=== PATIENT | female | born 1965 | race Caucasian/White ===

== ENCOUNTER 2016-05-24 09:00 | Emergency (ER) | payer BC ==
[2016-05-24 09:06] VITALS: BP 172/91; PULSE 88; TEMP 97.8; BMI 42.5
--- NOTE | 2016-05-24 09:29 | PDOC ---
History of Present Illness - General History Source: Patient Exam Limitations: No Limitations - History of Present Illness Initial Comments: CHIEF COMPLAINT: 51 y/o afebrile female with no significant PMH c/o burn to right breast. HISTORY OF PRESENT ILLNESS: The patient states she was cooking naked 1 week ago and after finishing she was cleaning her stove and she accidentally leaned in to the hot pot on the stove, burning her right breast. She has been cleaning it with hydrogen peroxide and putting neosporin on it but it's not getting any better. She now has redness surrounding the burn and is worried it' s infected. She denies decreased sensation to area of the burn, f/c, body aches , n/v/d. Vital signs on arrival are within normal limits. REVIEW OF SYSTEMS: GENERAL/CONSTITUTIONAL: No fever/chills. No weakness. No weight change. HEAD, EYES, EARS, NOSE AND THROAT: No change in vision. No ear pain or discharge. No sore throat. CARDIOVASCULAR: No chest pain or shortness of breath. RESPIRATORY: No cough, wheezing, or hemoptysis. GASTROINTESTINAL: No abd pain, nausea, vomiting, diarrhea. GENITOURINARY: No dysuria, frequency, or change in urination. MUSCULOSKELETAL: No joint or muscle swelling or pain. No neck or back pain. SKIN: +burn to right breast. NEUROLOGIC: No headache, vertigo, loss of consciousness, or loss of sensation. PHYSICAL EXAM: GENERAL: The patient is awake, alert, and fully oriented, in no acute distress. She is morbidly obese, ambulatory, in NAD or obvious discomfort. HEAD: Normal with no signs of trauma. ENT: Pupils equal, round and reactive to light, extraocular movements intact, sclera anicteric, conjunctiva clear. Neck supple. EXTREMITIES: Normal range of motion, no edema. NEUROLOGICAL: Normal speech, normal gait. CN II-XII grossly intact. PSYCH: Normal mood, normal affect. SKIN: 5cm x 5cm 2nd degree burn to upper inner quadrant of right breast with 12cm x 14cm area of surrounding erythema. <Jana Marsh - Last Filed: 05/24/16 09:56> <Ana M Velarde - Last Filed: 05/24/16 10:38> - General Chief Complaint: Wound Stated Complaint: BURN TO CHEST Time Seen by Provider: 05/24/16 09:13 Past History - Past Medical History Anemia: No Asthma: No Cancer: No Cardiac Disorders: No CVA: No COPD: No CHF: No Dementia: No Diabetes: No GI Disorders: No Disorders: No HTN: No Hypercholesterolemia: No Liver Disease: No Seizures: No Thyroid Disease: No - Surgical History Neurologic Surgery: No Orthopedic Surgery: Yes (KNEE SURGERY-LEFT ARTHROSCOPY) - Psycho/Social/Smoking Cessation Hx Anxiety: No Suicidal Ideation: No Smoking Status: Yes Smoking History: Current every day smoker Have you smoked in the past 12 months: Yes Number of Cigarettes Smoked Daily: 20 Information on smoking cessation initiated: No 'Breaking Loose' booklet given: 10/29/15 Hx Alcohol Use: No Drug/Substance Use Hx: No Substance Use Type: Alcohol Hx Substance Use Treatment: No <Jana Marsh - Last Filed: 05/24/16 09:56> <Ana M Velarde - Last Filed: 05/24/16 10:38> - Past Medical History Allergies/Adverse Reactions: Allergies Allergy/AdvReac Type Severity Reaction Status Date / Time amoxicillin [Amoxicillin] Allergy Severe Rash Verified 05/24/16 09:06 Home Medications: Ambulatory Orders NK [No Known Home Medication] 05/24/16 *Physical Exam - Vital Signs Last Vital Signs Temp Pulse Resp BP Pulse Ox 97.8 F 88 18 172/91 100 05/24/16 09:02 05/24/16 09:02 05/24/16 09:02 05/24/16 09:02 05/24/16 09:02 <Jana Marsh - Last Filed: 05/24/16 09:56> - Vital Signs Last Vital Signs Temp Pulse Resp BP Pulse Ox 97.8 F 88 18 172/91 100 05/24/16 09:02 05/24/16 09:02 05/24/16 09:02 05/24/16 09:02 05/24/16 09:02 <Ana M Velarde - Last Filed: 05/24/16 10:38> Medical Decision Making - Medical Decision Making A/P: 51 y/o afebrile female with 2nd degree burn to right breast. Plan is as follows: 1. IV Dalvance 2. Cover burn with xeroform and non adherent dressing The patient tolerated Dalvance well. Informed her no further abx treatment is necessary at this time. Covered burn with xeroform and then non-adherent dressing Provided her with some xeroform and non adherent dressing to take home Instructed her to d/c peroxide cleaning of the burn. INstructed her to f/u at the [facility] burn center within 1 week INstructed her to return to the ER with any worsening or concerning symptoms. The patient verbalizes understanding of all instructions, has no further questions and is awaiting discharge. <Jana Marsh - Last Filed: 05/24/16 09:56> *DC/Admit/Observation/Transfer <Jana Marsh - Last Filed: 05/24/16 09:56> - Attestations Physician Attestion: 05/24/16 09:36 I independently examined and evaluated this patient in conjunction with STACI Marsh, mid-level practitioner. I reviewed the case and agree with the mid- level practitioner's assessment, diagnosis and disposition. Wound examined. Recommended 1 dose of dalvance, as the surrounding erythema is spreading. No streaking. Will apply bacitracin and xeroform and f/u with wound care. <Ana M Velarde - Last Filed: 05/24/16 10:38> Diagnosis at time of Disposition: Second degree burn of chest wall - Discharge Dispostion Condition at time of disposition: Good - Referrals Referrals: Gregg Gonsalez MD [Primary Care Provider] - - Patient Instructions Printed Discharge Instructions: DI for [place] Additional Instructions: Discharge Instructions: -You were treated with 1 dose of IV Dalvance for cellulitis; no more antibiotics treatment is necessary -Please stop cleaning burn with peroxide -Please stop picking the skin of the burn -Apply Neosporin to your burn and cover with non-adherent dressing -Please follow up at the [facility] Burn Unit at [address] [place] [address] within 1 week. [phone] -Return to the ER with any worsening or concerning symptoms
[2016-05-24] MEDS ORDERED: DALBAVANCIN HCL 1,500 MG in DEXTROSE 5%-WATER - 500 ML IVPB ONE (09:36)
[2016-05-24] MEDS ORDERED: DALBAVANCIN HCL 500 MG VIAL (RESTRICTED TO ID ONLY) IVPB ONE (10:21)
== END 2016-05-24 11:21 | disposition home or self-care (01) ==
LOC: JER 09:00
PROC: 2W24X4Z Dressing of Chest Wall using Bandage (ICD-10-PCS; principal; 2016-05-24)
DX: T21.21XA Burn of second degree of chest wall, initial encounter (principal); T31.0 Burns involving less than 10% of body surface; X15.3XXA Contact with hot saucepan or skillet, initial encounter; Y93.G3 Activity, cooking and baking; Y92.030 Kitchen in apartment as the place of occurrence of the external cause
CPT/HCPCS: 99283-25; J0875

== ENCOUNTER 2017-01-24 09:53 | Emergency (ER) | payer BC ==
[2017-01-24 10:00] VITALS: BP 145/95; PULSE 80; TEMP 98; BMI 52.1
[2017-01-24] MEDS ORDERED: IBUPROFEN 600 MG TABLET (FP) PO ONE ×2 (10:18→10:28)
--- NOTE | 2017-01-24 10:27 | PDOC ---
History of Present Illness - General Chief Complaint: Pain Stated Complaint: SHOULDER PAIN Time Seen by Provider: 01/24/17 10:18 History Source: Patient Exam Limitations: No Limitations - History of Present Illness Initial Comments: 01/24/17 10:19 Patient states one month ago slipped and fell in bathroom while on vacation and landed on her left shoulder. States was painful and bruised at the time and was hoping pain would resolve but has not. Patient states has continued pain and mild immobility secondary to this since that injury. Denies numbness or tingling to hand, no elbow pain, no neck pain. Has used and ibuprofen occasionally with minimal resolved. 01/24/17 10:21 Occurred: reports: other Severity: reports: mild Pain Location: reports: upper extremity (left shoulder) Past History - Past Medical History Allergies/Adverse Reactions: Allergies Allergy/AdvReac Type Severity Reaction Status Date / Time amoxicillin [Amoxicillin] Allergy Severe Rash Verified 01/24/17 10:00 Home Medications: Ambulatory Orders Naproxen [Naprosyn -] 500 mg PO BID #30 tablet 01/24/17 Anemia: No Asthma: No Cancer: No Cardiac Disorders: No CVA: No COPD: No CHF: No Dementia: No Diabetes: No GI Disorders: No Disorders: No HTN: No Hypercholesterolemia: No Liver Disease: No Seizures: No Thyroid Disease: No - Surgical History Neurologic Surgery: No Orthopedic Surgery: Yes (KNEE SURGERY-LEFT ARTHROSCOPY) - Psycho/Social/Smoking Cessation Hx Anxiety: No Suicidal Ideation: No Smoking Status: Yes Smoking History: Current every day smoker Have you smoked in the past 12 months: Yes Number of Cigarettes Smoked Daily: 20 Information on smoking cessation initiated: No 'Breaking Loose' booklet given: 10/29/15 Hx Alcohol Use: No Drug/Substance Use Hx: No Substance Use Type: Alcohol Hx Substance Use Treatment: No Review of Systems - Review of Systems Able to Perform ROS?: Yes Is the patient limited Georgian proficient: Yes Constitutional: Yes: See HPI. No: Symptoms Reported HEENTM: Yes: See HPI. No: Symptoms Reported Respiratory: No: Symptoms reported Musculoskeletal: Yes: Symptoms Reported, See HPI, Joint Pain, Joint Swelling ( left shoulder) All Other Systems: Reviewed and Negative *Physical Exam - Vital Signs Last Vital Signs Temp Pulse Resp BP Pulse Ox 98 F 80 18 145/95 100 01/24/17 09:58 01/24/17 09:58 01/24/17 09:58 01/24/17 09:58 01/24/17 09:58 - Physical Exam General Appearance: Yes: Nourished, Appropriately Dressed, Apparent Distress, Mild Distress HEENT: positive: DARRICK, Normal ENT Inspection, TMs Normal, Pharynx Normal Neck: positive: Supple. negative: Tender Respiratory/Chest: positive: Lungs Clear Musculoskeletal: positive: Normal Inspection. negative: CVA Tenderness, Vertebral Tenderness Extremity: positive: Normal Capillary Refill, Normal Inspection. negative: Normal Range of Motion (limited range of motion secondary to tenderness at shoulder capsule, has mild tenderness at before meals joint, and soft tissue both posterior and anterior. Abduction to 90 and unable with resistance. 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 We'll treat with NSAIDs and have follow up with Orth O for further testing and treatment *DC/Admit/Observation/Transfer Diagnosis at time of Disposition: Sprain of shoulder, left Qualifiers: Encounter type: initial encounter Shoulder sprain type: unspecified sprain Qualified Code(s): S43.402A - Unspecified sprain of left shoulder joint, initial encounter - Discharge Dispostion Disposition: HOME Condition at time of disposition: Stable Admit: No - Referrals Referrals: Gregg Gonsalez MD [Primary Care Provider] - Nish Rodarte MD [Staff Physician] - - Patient Instructions Printed Discharge Instructions: DI for Shoulder Sprain Additional Instructions: Rest, ice to area on and off for 15 minutes 4-6 times a day Avoid heavy lifting or exercise until pain and swelling is resolved or until further directed Keep area highly elevated to reduce swelling Use splints/Arias wrap as directed Followup with orthopedist in one to 2 days if not improving, if significantly improved may wait one week for followup with orthopedist May use ibuprofen 2-200 mg tablets every 6 hours as needed for pain - Post Discharge Activity Work/School Note: Back to Work
== END 2017-01-24 10:39 | disposition home or self-care (01) ==
LOC: JERFT 09:53
DX: S43.402A Unspecified sprain of left shoulder joint, initial encounter (principal); W18.39XA Other fall on same level, initial encounter; Y93.89 Activity, other specified; Y92.89 Other specified places as the place of occurrence of the external cause
CPT/HCPCS: 73030-TC-LT; 99281-25

== ENCOUNTER 2017-07-26 18:36 | Emergency (ER) | payer BC ==
--- NOTE | 2017-07-26 18:41 | PDOC ---
Rapid Medical Evaluation Chief Complaint: Respiratory Time Seen by Provider: 07/26/17 18:38 Medical Evaluation: Allergies Allergy/AdvReac Type Severity Reaction Status Date / Time amoxicillin [Amoxicillin] Allergy Severe Rash Verified 07/26/17 18:38 07/26/17 18:39 Otherwise healthy 52 year old female with one week of cough, non-productive. Smokes 1/2 pack daily. V/s unremarkable. Scant expiratory wheezing. To FT for further evaluation. 07/26/17 18:40
[2017-07-26 18:43] VITALS: BP 156/76; PULSE 92; TEMP 98.4; BMI 54.8
[2017-07-26] MEDS ORDERED: ALBUTEROL SO4 2.5/IPRATROPIUM 0.5 INH SOL 3 ML VIAL.NEB. NEB ONE ×2 (18:50→18:59)
--- NOTE | 2017-07-26 19:05 | PDOC ---
History of Present Illness - General Chief Complaint: Respiratory Stated Complaint: COUGHING Time Seen by Provider: 07/26/17 18:38 History Source: Patient Exam Limitations: No Limitations - History of Present Illness Initial Comments: 07/26/17 18:50 cough for one week no fever mild wheezing. Pt has DM, obesity , smoker. no SOB or chest pain no leg swelling 07/26/17 19:16 Past History - Past Medical History Allergies/Adverse Reactions: Allergies Allergy/AdvReac Type Severity Reaction Status Date / Time amoxicillin [Amoxicillin] Allergy Severe Rash Verified 07/26/17 18:38 Home Medications: Ambulatory Orders Albuterol Sulfate Inhaler - [Ventolin HFA Inhaler -] 1 - 2 inh PO Q4H #1 inhaler 07/26/17 Azithromycin [Zithromax 250mg Tablets -] 250 mg PO UTDICT #6 tab 07/26/17 Benzonatate [Tessalon Pearls -] 200 mg PO TID PRN #42 cap 07/26/17 Anemia: No Asthma: No Cancer: No Cardiac Disorders: No CVA: No COPD: No CHF: No Dementia: No Diabetes: No GI Disorders: No Disorders: No HTN: No Hypercholesterolemia: No Liver Disease: No Seizures: No Thyroid Disease: No - Surgical History Neurologic Surgery: No Orthopedic Surgery: Yes (KNEE SURGERY-LEFT ARTHROSCOPY) - Immunization History Immunization Up to Date: Yes - Suicide/Smoking/Psychosocial Hx Smoking Status: Yes Smoking History: Current every day smoker Have you smoked in the past 12 months: Yes Number of Cigarettes Smoked Daily: 20 Information on smoking cessation initiated: No 'Breaking Loose' booklet given: 10/29/15 Hx Alcohol Use: No Drug/Substance Use Hx: No Substance Use Type: None Hx Substance Use Treatment: No *Physical Exam - Vital Signs Last Vital Signs Temp Pulse Resp BP Pulse Ox 98.4 F 92 H 22 156/76 97 07/26/17 18:38 07/26/17 18:38 07/26/17 18:38 07/26/17 18:38 07/26/17 18:38 - Physical Exam General Appearance: Yes: Nourished, Appropriately Dressed HEENT: positive: EOMI, DARRICK, Normal ENT Inspection, TMs Normal, Pharynx Normal Neck: positive: Supple. negative: Tender Respiratory/Chest: positive: Lungs Clear, Normal Breath Sounds, Wheezing ( scattered ). negative: Chest Tender Cardiovascular: positive: Regular Rhythm, Regular Rate Extremity: positive: Normal Capillary Refill, Normal Inspection, Normal Range of Motion Integumentary: positive: Normal Color, Dry, Warm Neurologic: positive: Fully Oriented, Alert, Normal Mood/Affect, Normal Response , Motor Strength /5 Medical Decision Making - Medical Decision Making 07/26/17 19:27 cc: cough for 5 days no fever no chest pain no shortness of breath mild wheezing history of bronchitis will give nebulizer now and re-evaluate CXR done neg pneumonia pt feels better after the nebulizer will dc home with supportive care zpack, tessalon and albuterol inhaler *DC/Admit/Observation/Transfer Diagnosis at time of Disposition: Bronchitis - Discharge Dispostion Disposition: HOME Condition at time of disposition: Improved - Prescriptions Prescriptions: Albuterol Sulfate Inhaler - [Ventolin HFA Inhaler -] 1 - 2 inh PO Q4H #1 inhaler Azithromycin [Zithromax 250mg Tablets -] 250 mg PO UTDICT #6 tab Benzonatate [Tessalon Pearls -] 200 mg PO TID PRN #42 cap PRN Reason: Cough - Referrals Referrals: Gregg Gonsalez MD [Primary Care Provider] - - Patient Instructions Printed Discharge Instructions: DI for Acute Bronchitis Additional Instructions: drink pleanty of water avoid any dairy products use the inhaler as directed every 4hrs follow with in 2-3 days for follow up exam take the Zpack as directed use tessalon perles for coughing Return to ER for any worsening symptoms or concerns - Post Discharge Activity
== END 2017-07-26 19:33 | disposition home or self-care (01) ==
LOC: JER 18:36
PROC: 3E0F7GC Introduction of Other Therapeutic Substance into Respiratory Tract, Via Natural or Artificial Opening (ICD-10-PCS; principal; 2017-07-26)
DX: J40 Bronchitis, not specified as acute or chronic (principal); F17.210 Nicotine dependence, cigarettes, uncomplicated; E66.9 Obesity, unspecified; Z68.43 Body mass index [BMI] 50.0-59.9, adult
CPT/HCPCS: 71046-TC-FY; 99281-25; J7620

== ENCOUNTER 2018-08-30 10:43 | Emergency (ER) | payer BC ==
[2018-08-30 10:52] VITALS: BP 149/71; PULSE 89; TEMP 97.9; BMI 54.3
[2018-08-30] MEDS ORDERED: ALBUTEROL SO4 2.5/IPRATROPIUM 0.5 INH SOL 3 ML VIAL.NEB. NEB ONE ×2 (11:12→11:20)
--- NOTE | 2018-08-30 11:12 | PDOC ---
History of Present Illness - General Chief Complaint: Sore Throat Stated Complaint: COLD SYMPTOMS Time Seen by Provider: 08/30/18 10:54 Past History - Past Medical History Allergies/Adverse Reactions: Allergies Allergy/AdvReac Type Severity Reaction Status Date / Time amoxicillin [Amoxicillin] Allergy Severe Rash Verified 08/30/18 10:52 Home Medications: Ambulatory Orders Albuterol Sulfate Inhaler - [Ventolin HFA Inhaler -] 1 - 2 inh PO Q4H #1 inhaler 08/30/18 Ibuprofen 600 mg PO Q6H #30 tablet 08/30/18 Oseltamivir Phosphate [Tamiflu -] 75 mg PO DAILY #10 capsule 08/30/18 Anemia: No Asthma: No Cancer: No Cardiac Disorders: No CVA: No COPD: No CHF: No Dementia: No Diabetes: No GI Disorders: No Disorders: No HTN: No Hypercholesterolemia: No Liver Disease: No Seizures: No Thyroid Disease: No - Surgical History Neurologic Surgery: No Orthopedic Surgery: Yes (KNEE SURGERY-LEFT ARTHROSCOPY) - Immunization History Immunization Up to Date: Yes - Suicide/Smoking/Psychosocial Hx Smoking Status: Yes Smoking History: Current every day smoker Have you smoked in the past 12 months: No Number of Cigarettes Smoked Daily: 20 Information on smoking cessation initiated: No 'Breaking Loose' booklet given: 10/29/15 Hx Alcohol Use: No Drug/Substance Use Hx: No Substance Use Type: None Hx Substance Use Treatment: No *Physical Exam - Vital Signs Last Vital Signs Temp Pulse Resp BP Pulse Ox 97.9 F 89 18 149/71 98 08/30/18 10:48 08/30/18 10:48 08/30/18 10:48 08/30/18 10:48 08/30/18 10:48 *DC/Admit/Observation/Transfer Diagnosis at time of Disposition: URI (upper respiratory infection) Qualifiers: URI type: unspecified URI Qualified Code(s): J06.9 - Acute upper respiratory infection, unspecified - Discharge Dispostion Disposition: HOME Condition at time of disposition: Stable Decision to Admit order: No - Referrals Referrals: Gregg Gonsalez MD [Primary Care Provider] - - Patient Instructions Printed Discharge Instructions: DI for Viral Upper Respiratory Infection -- Adult Additional Instructions: You have an upper respiratory infection, or the common cold. Since your family member has the flu, take the tamiflu prophylactically as directed Please take Motrin 600 mg every 6 hours as needed for pain not to exceed 3000 mg a day. Use the inhaler as directed Drink plenty of fluids. Cough drops and warm tea may help your symptoms as well. Please follow up with her primary care doctor this week. Return to the emergency department if you have difficulty breathing, shortness of breath, worsening pain, nausea, vomiting or if you have any changes in your symptoms - Post Discharge Activity Forms/Work/School Notes: Back to Work
== END 2018-08-30 12:02 | disposition home or self-care (01) ==
LOC: JERFT 10:43
PROC: 3E0F7GC Introduction of Other Therapeutic Substance into Respiratory Tract, Via Natural or Artificial Opening (ICD-10-PCS; principal; 2018-08-30)
DX: J06.9 Acute upper respiratory infection, unspecified (principal); F17.210 Nicotine dependence, cigarettes, uncomplicated
CPT/HCPCS: 99281-25

== ENCOUNTER 2018-10-18 11:38 | Day surgery (SDC) | payer BC ==
[2018-10-17 08:18] VITALS: BMI 56.2
[2018-10-18] MEDS ORDERED: PROPOFOL 20 ML ONE (12:13)
[2018-10-18] MEDS ORDERED: DEXAMETHASONE SOD PHOSPHATE 4 MG/1 ML VIAL ONE (12:13)
[2018-10-18] MEDS ORDERED: MIDAZOLAM HCL 2 MG/2 ML SINGLE DOSE VIAL ONE ×2 (12:13→14:33)
[2018-10-18] MEDS ORDERED: LIDOCAINE HCL/PF 2% SDV 5ML VIAL ONE (12:13)
[2018-10-18] MEDS ORDERED: BUPIVACAINE HCL/PF 0.5% (5MG/ML) 10 ML VIAL ONE (14:08)
--- NOTE | 2018-10-18 14:14 | HP ---
History & Physical Update - History History: No Change (Postmenopausal bleeding, morbid obesity.) - Physical Physical: No Change - Assessment Assessment: No Change - Plan Plan: No Change (Hysteroscopy, D&C)
[2018-10-18] MEDS ORDERED: ceFAZolin SODIUM 1 GM VIAL IVPB ONE (14:45)
[2018-10-18] MEDS ORDERED: ceFAZolin SODIUM 1 GM VIAL ONE (14:45)
--- NOTE | 2018-10-18 15:07 | OP ---
Operative Note - Note: Operative Date: 10/18/18 Pre-Operative Diagnosis: Postmenopausal bleeding, morbid obesity Operation: Hysteroscopy, D&C Findings: Normal uterine cavity with atrophic endomerium Post-Operative Diagnosis: Same as Pre-op Surgeon: Tru Rowley Anesthesiologist/TENNIS DESK TEAM MEMBER: Sally Quintero Anesthesia: Spinal Specimens Removed: Endometrial curettings Estimated Blood Loss (mls): 2 Blood Volume Replaced (mls): 0 Fluid Volume Replaced (mls): 400 Operative Report Dictated: Yes
[2018-10-18] MEDS ORDERED: KETOROLAC TROMETHAMINE 30 MG/1 ML VIAL ONE (15:41)
[2018-10-18] MEDS ORDERED: oxyCODONE HCL 5 MG TABLET PO PRN (16:11)
[2018-10-18] MEDS ORDERED: PROMETHAZINE HCL 25 MG/1 ML VIAL IVPB PRN (16:11)
[2018-10-18] MEDS ORDERED: ONDANSETRON 4 MG/2 ML VIAL IVPUSH PRN (16:11)
[2018-10-18 16:30] VITALS: TEMP 97.8
[2018-10-18] MEDS ORDERED: KETOROLAC TROMETHAMINE 30 MG/1 ML VIAL IVPUSH ONE (16:39)
[2018-10-18] MEDS ORDERED: oxyCODONE HCL 5 MG TABLET ONE (16:55)
[2018-10-18] MEDS ORDERED: oxyCODONE HCL 5 MG TABLET PO ONE (16:58)
[2018-10-18 17:40] VITALS: BP 147/86; PULSE 85
--- NOTE | 2018-10-20 00:32 | OP ---
DATE OF OPERATION: 10/18/2018 PREOPERATIVE DIAGNOSES: Postmenopausal bleeding, morbid obesity. POSTOPERATIVE DIAGNOSES: Postmenopausal bleeding, morbid obesity. PROCEDURE: Hysteroscopy, dilatation and curettage. SURGEON: Jimmy Ruiz MD ANESTHESIOLOGIST: Sally Quintero MD ANESTHESIA: Spinal. COMPLICATIONS: None. PATHOLOGY: Endometrial curettings. INTRAVENOUS FLUIDS: 400 mL. ESTIMATED BLOOD LOSS: 2 mL. FINDINGS: Examination under anesthesia revealed a freely mobile uterus, normal cervix. No bleeding was noted prior to surgery. No pelvic or adnexal masses were noted. However, the examination was severely limited by patient's body habitus. Hysteroscopy revealed a normal-appearing uterine cavity with atrophic endometrium. DESCRIPTION OF PROCEDURE: The patient was met preoperatively. Risks, benefits, and alternatives of surgery were discussed in details. All questions were answered. The patient was then brought to the OR with the IV running. The patient was placed on a surgical table in the sitting position. The spinal anesthesia was achieved and found to be adequate. The patient was then placed in a dorsal lithotomy position using adjustable Paulino stirrups. She was examined under anesthesia with the findings as described above. The timeout was conducted as per standard protocol. The patient was then prepped and draped in the usual sterile fashion. A sterile speculum was introduced inside the vagina with good visualization of the cervix. The cervix was grasped with a single-tooth tenaculum. The cervical os was dilated to accommodate a size 15 Pastrana dilator. A diagnostic hysteroscope was then introduced into the uterine cavity. A normal-appearing uterine cavity was noted with an atrophic endometrium. The hysteroscope was then removed. A uterine curettage was performed, and the tissue was submitted to Pathology for evaluation. Once the procedure was completed, good hemostasis was noted. All of the instruments were removed from the patient. Sponge, lap, and needle counts were correct. Instrument counts were correct. The patient was returned to supine position. She was then transferred to recovery room in stable condition and awake. JIMMY RUIZ M.D. [id number]
--- NOTE | 2018-10-20 15:42 | PATH ---
Surgical Pathology Report Patient Name: YANIRA STROUD [facility]. Rec. #: [id number] /Age/Gender: 1965 (Age: 53) / F Account: [id number] Location: [facility] Taken: 10/18/2018 Received: 10/19/2018 Reported: 10/20/2018 Physicians: Tru Rowley M.D. Specimen(s) Received ENDOMETRIAL CURETTINGS Clinical History Postmenopausal bleeding Final Diagnosis ENDOMETRIAL CURETTINGS: FRAGMENTS OF WEAKLY PROLIFERATIVE ENDOMETRIUM. ENDOCERVICAL TISSUE WITH SQUAMOUS METAPLASIA ADMIXED WITH MUCUS. Electronically Signed Jacki Worley M.D. Gross Description Received in formalin labeled "endometrial curettings," is a 2.3 x 2.0 x 0.3 cm aggregate of newman soft tissue fragments admixed with mucus. The formalin is filtered and the specimen is entirely submitted in one cassette. /10/19/201810/19/2018
== END 2018-10-18 18:00 | disposition home or self-care (01) ==
LOC: JASU-SURG 11:38
PROVIDERS: ATTEND Obstetrics & Gynecology
PROC: 0UDB7ZX Extraction of Endometrium, Via Natural or Artificial Opening, Diagnostic (ICD-10-PCS; principal; 2018-10-18 14:00)
PROC: 0UJD8ZZ Inspection of Uterus and Cervix, Via Natural or Artificial Opening Endoscopic (ICD-10-PCS; 2018-10-18 14:00)
DX: N95.0 Postmenopausal bleeding (principal); E66.01 Morbid (severe) obesity due to excess calories
CPT/HCPCS: 36415; 82962; 84703; 86850; 86900; 86901; 88305-TC; 94760

== ENCOUNTER 2019-02-19 10:23 | Inpatient (IN) | payer BC ==
[2019-02-05 10:29] VITALS: BMI 54.6
[2019-02-19] MEDS ORDERED: BUPIVACAINE HCL/PF 2.5 MG/ML - 30 ML VIAL IJ ONE (10:24)
[2019-02-19] MEDS ORDERED: MIDAZOLAM HCL 2 MG/2 ML SINGLE DOSE VIAL ONE (10:26)
[2019-02-19] MEDS ORDERED: DEXAMETHASONE SOD PHOSPHATE/PF 10 MG/ML SDV ONE (10:26)
[2019-02-19] MEDS ORDERED: BUPIVACAINE HCL/PF 0.5% (5 MG/ML) 30 ML VIAL IJ ONE (10:26)
[2019-02-19] MEDS ORDERED: PROPOFOL 20 ML ONE ×2 (10:28→12:16)
[2019-02-19] MEDS ORDERED: SUCCINYLCHOLINE CHLORIDE 200 MG/10 ML SYRINGE ONE (10:28)
[2019-02-19] MEDS ORDERED: ROCURONIUM BROMIDE 50 MG/5 ML SYRINGE ONE (10:28)
[2019-02-19] MEDS ORDERED: LIDOCAINE HCL/PF 2% SDV 5ML VIAL ONE (10:29)
[2019-02-19] MEDS ORDERED: ONDANSETRON 4 MG/2 ML VIAL ONE ×2 (12:11→13:30)
[2019-02-19] MEDS ORDERED: DEXAMETHASONE SOD PHOSPHATE 4 MG/1 ML VIAL ONE (12:11)
[2019-02-19] MEDS ORDERED: PHENYLEPHRINE HCL 10 MG/1 ML SINGLE DOSE VIAL ONE (12:18)
[2019-02-19] MEDS ORDERED: SODIUM CHLORIDE 0.9% P/F 10 ML VIAL IJ ONE (12:19)
[2019-02-19] MEDS ORDERED: NEOSTIGMINE METHYLSULFATE 0.5 MG/ML - 10 ML MDV ONE (13:02)
[2019-02-19] MEDS ORDERED: GLYCOPYRROLATE 0.2 MG/1 ML VIAL ONE ×2 (13:02)
[2019-02-19] MEDS ORDERED: ONDANSETRON 4 MG/2 ML VIAL IVPUSH PRN ×2 (13:04→13:13)
[2019-02-19] MEDS ORDERED: LACTATED RINGERS SOLUTION 1,000 ML IV SCH (13:15)
[2019-02-19] MEDS ORDERED: SODIUM CHLORIDE 1,000 ML IV SCH (13:15)
--- NOTE | 2019-02-19 13:20 | OP ---
Operative Note - Note: Operative Date: 02/19/19 Pre-Operative Diagnosis: Morbid Obesity. Diabetes Mellitus Operation: Laparoscopic Vertical Sleeve Gastrectomy. Wedge Biopsy of left lobe of liver. Diagnostic Laparoscopy Findings: Greater curve sleeve gastrectomy performed with #[address] Wedge biopsy performed on enlarged left lobe of liver Post-Operative Diagnosis: Same as Pre-op (Hepatomegaly) Surgeon: Lobito Bhatia Networking Administrator: Wilfred Lloyd Anesthesia: General Specimens Removed: Greater curve of stomach. Wedge biopsy of left lobe of liver Estimated Blood Loss (mls): 30 Operative Report Dictated: Yes
[2019-02-19] MEDS ORDERED: FAMOTIDINE 20 MG/50 ML IVPB 20 MG/50 ML MG IVPB ONE (13:30)
[2019-02-19] MEDS: METOCLOPRAMIDE HCL INJECTION 10 MG/2 ML VIAL IVPUSH SCH ×2 (13:40→20:44)
[2019-02-19] MEDS ORDERED: FAMOTIDINE 20 MG PREMIXED IVPB IVPB ONE (13:45)
[2019-02-19] MEDS: ACETAMINOPHEN 1000 MG/100 ML VIAL (NON FORMULARY) IVPB SCH ×2 (14:10→20:43)
--- NOTE | 2019-02-19 14:12 | OP ---
DATE OF OPERATION: 02/19/2019 PREOPERATIVE DIAGNOSES: 1. Morbid obesity. 2. Diabetes mellitus. POSTOPERATIVE DIAGNOSES: 1. Morbid obesity. 2. Diabetes mellitus. 3. Hepatomegaly. PROCEDURES PERFORMED: 1. Laparoscopic vertical sleeve gastrectomy. 2. Wedge biopsy of the left lobe of the liver. 3. Diagnostic laparoscopy. OPERATING SURGEON: Lobito Bhatia MD FINISH MENDER: Wilfred Lloyd MD ANESTHESIA: General. EXPECTED BLOOD LOSS: 30 mL. DESCRIPTION OF PROCEDURE: Patient was brought into the operating room, placed on the OR table in the supine position. All precautions were taken initially including padding for the back and the feet, and Venodyne boots were placed on both lower extremities. At that point, the abdomen was prepped and draped in the usual manner. A Veress needle was placed in the left upper quadrant, and a pneumoperitoneum was established. Under direct vision with a No. 5 optoscope and a camera, a No. 5 trocar trocar was placed in the left upper quadrant and through that trocar, laparoscopic camera was placed. Under direct vision, No. 15 bladeless trocar was placed in the midline in a supraumbilical position followed by a No. 5 bladeless trocar in the right upper quadrant and No. 5 bladeless trocar bowel the left costal margin. A Jae liver retractor was then placed in the epigastrium to retract the left lobe of the liver. The left lobe was noted to be extremely enlarged and appeared very thickened. It was decided, therefore, that a biopsy would be performed. On the edge of the left lobe of the liver inferiorly, as the registered dental assistant surgeon grabbed the edge of the liver with the laparoscopic instrument, the operating surgeon used a LigaSure device to dissect out a triangular shaped wedge of liver. This wedge biopsy was then sent off the field as specimen to pathology, and the parenchyma had some minor oozing, which was easily controlled with the electrocautery. The patient was then placed in a 20-degree reverse Trendelenburg position by anesthesia. The pylorus was noted on the distal stomach, and 6 cm was measured proximally from there. At this point, with the operating surgeon lifting the stomach toward the anterior abdominal wall, the registered dental assistant surgeon retracted the gastrocolic ligament inferiorly. The LigaSure device was now used to dissect the gastrocolic ligament and the short gastric vessels off the greater curve of the stomach. This continued in a superior and vertical direction until a final short gastric vessel between the superior pole of the spleen and the proximal fundus was divided. At this juncture, anesthesia advanced a No. 36 bougie and placed it into the distal stomach toward the pylorus. With the bougie held along the lesser curve, a series of ariel were performed with the 1st 2 being black load ariel 6 cm in length along the bougie. This was followed by a series of purple load ariel also 6 cm in length and also hugging the bougie. When the final staple was fired in the left upper quadrant, the greater curve was now completely detached from the lesser curve. It should be noted that prior to firing each staple, both the anterior and posterior santos were checked that they were equal, and the area of the esophagogastric junction approximately 1 to 1/2 cm of serosa remained on the anterior and posterior surfaces. With saline now placed around the staple line, anesthesia inserted air into the bougie, which distended the entire stomach down to the pylorus showing no obstruction and also no leaks were noted. At this point, the greater curvature, which was resected, was now removed through the No. 15 trocar site and sent off the field as a specimen to pathology. Surgicel was placed into the abdominal cavity and placed along the staple line to provide further hemostasis for the surgery. The No. 15 trocar site was closed with endoclosure device to prevent internal hernia and to prevent bleeding. At that point, under direct vision, all trocars were removed, and pneumoperitoneum was released. All trocar sites received 0.25% Marcaine. The No. 15 trocar site was closed with 3-0 Vicryl in the subcutaneous tissue then all trocar sites received 4-0 Biosyn in subcuticular fashion. Dressings were applied. The patient was awoken from anesthesia and transferred out of the operating room to the recovery room in stable condition. Ciro [id number]
[2019-02-19 14:22] LABS: ALBUMIN 3.8 g/dl (3.4-5.0); BILIRUBIN,TOTAL 0.3 mg/dl (0.2-1); CALCIUM 8.3 mg/dl (8.5-10); CREATININE 0.7 mg/dl (0.55-1.3); POTASSIUM 3.7 mmol/L (3.5-5.1); TOT PROT 6.8 g/dl (6.4-8.2)
[2019-02-19 14:24] LABS: HEMATOCRIT 37.6 % (32.4-45.2); HEMOGLOBIN 12.3 GM/dl (10.7-15.3); MCH 28.6 pg (25.7-33.7); MCHC 32.7 g/dl (32.0-36.0); MEAN CELL VOLUME 87.2 fl (80-96); MEAN PLT VOLUME 9.1 fl (7.5-11.1); PLATELET COUNT 354 K/MM3 (134-434); RBC 4.31 M/mm3 (3.60-5.2); RDW 14.2 % (11.6-15.6); WHITE BLOOD COUNT 20.3 K/mm3 (4.0-10.8)
[2019-02-19] MEDS: HYDROmorphone HCL CARPU-JECT 1 MG/1 ML DISP.SYRIN IVPB PRN (17:08)
[2019-02-19] MEDS: FAMOTIDINE 20 MG/50 ML IVPB 20 MG/50 ML MG IVPB SCH (21:28)
[2019-02-20] MEDS: HYDROmorphone HCL CARPU-JECT 1 MG/1 ML DISP.SYRIN IVPB PRN (00:46)
[2019-02-20] MEDS: METOCLOPRAMIDE HCL INJECTION 10 MG/2 ML VIAL IVPUSH SCH ×2 (01:56→08:30)
[2019-02-20] MEDS: ACETAMINOPHEN 1000 MG/100 ML VIAL (NON FORMULARY) IVPB SCH ×2 (02:07→08:31)
[2019-02-20] MEDS ORDERED: ENOXAPARIN NA (PORCINE) 40 MG/0.4 ML DISP.SYRIN SQ SCH (05:00)
[2019-02-20 08:06] LABS: HEMATOCRIT 37.7 % (32.4-45.2); HEMOGLOBIN 12.6 GM/dl (10.7-15.3); MCH 28.9 pg (25.7-33.7); MCHC 33.3 g/dl (32.0-36.0); MEAN CELL VOLUME 86.5 fl (80-96); MEAN PLT VOLUME 9.1 fl (7.5-11.1); PLATELET COUNT 309 K/MM3 (134-434); RBC 4.36 M/mm3 (3.60-5.2); RDW 13.8 % (11.6-15.6); WHITE BLOOD COUNT 16.4 K/mm3 (4.0-10.8)
[2019-02-20 08:14] LABS: ALBUMIN 3.7 g/dl (3.4-5.0); BILIRUBIN,TOTAL 0.6 mg/dl (0.2-1); CALCIUM 8.4 mg/dl (8.5-10); CREATININE 0.5 mg/dl (0.55-1.3)
--- NOTE | 2019-02-20 08:21 | PN ---
Progress Note (short form) - Note Progress Note: 53F POD#1 for sleeve gastrectomy under GETA. This am pt. is doing well. VSS. No anesthesia related complications. Pain well controlled. Continue management per primary team.
[2019-02-20] MEDS: FAMOTIDINE 20 MG/50 ML IVPB 20 MG/50 ML MG IVPB SCH (09:19)
--- NOTE | 2019-02-20 09:26 | DS ---
Physical Exam: SUBJECTIVE: Patient seen and examined OBJECTIVE: Vital Signs Temperature 99.3 F 02/20/19 05:53 Pulse Rate 76 02/20/19 05:53 Respiratory Rate 18 02/20/19 05:53 Blood Pressure 141/62 02/20/19 05:53 O2 Sat by Pulse Oximetry (%) 96 02/20/19 08:52 PHYSICAL EXAM GENERAL: The patient is awake, alert, and fully oriented, in no acute distress. HEAD: Normal with no signs of trauma. EYES: PERRL, extraocular movements intact, sclera anicteric, conjunctiva clear. ENT: Ears normal, nares patent, oropharynx clear without exudates, moist mucous membranes. NECK: Trachea midline, full range of motion, supple. LUNGS: Breath sounds equal, clear to auscultation bilaterally, no wheezes, no crackles, no accessory muscle use. HEART: Regular rate and rhythm, S1, S2 without murmur, rub or gallop. ABDOMEN: Soft, mild diffuse tenderness, incisions clean no erythema or discharge , nondistended, no guarding, no rebound, no hepatosplenomegaly, no masses. EXTREMITIES: warm, well-perfused, no edema. NEUROLOGICAL: Cranial nerves II through XII grossly intact. Normal speech, gait not observed. PSYCH: Normal mood, normal affect. SKIN: Warm, dry, normal turgor, no rashes or lesions noted. LABS CBC,CMP WBC 16.4 K/mm3 (4.0-10.8) H 02/20/19 07:00 RBC 4.36 M/mm3 (3.60-5.2) 02/20/19 07:00 Hgb 12.6 GM/dl (10.7-15.3) 02/20/19 07:00 Hct 37.7 % (32.4-45.2) 02/20/19 07:00 MCV 86.5 fl (80-96) 02/20/19 07:00 MCH 28.9 pg (25.7-33.7) 02/20/19 07:00 MCHC 33.3 g/dl (32.0-36.0) 02/20/19 07:00 RDW 13.8 % (11.6-15.6) 02/20/19 07:00 Plt Count 309 K/MM3 (134-434) 02/20/19 07:00 MPV 9.1 fl (7.5-11.1) 02/20/19 07:00 Sodium 135 mmol/L (136-145) L 02/20/19 07:00 Potassium 4.0 mmol/L (3.5-5.1) 02/20/19 07:00 Chloride 103 mmol/L (98-107) 02/20/19 07:00 Carbon Dioxide 26 mmol/L (21-32) 02/20/19 07:00 Anion Gap 6 MMOL/L (8-16) L 02/20/19 07:00 BUN 8.0 mg/dl (7-18) 02/20/19 07:00 Creatinine 0.5 mg/dl (0.55-1.3) L 02/20/19 07:00 Est GFR (CKD-EPI)AfAm 128.07 02/20/19 07:00 Est GFR (CKD-EPI)NonAf 110.50 02/20/19 07:00 POC Glucometer 211 UNITS (80-120) 02/19/19 14:29 Random Glucose 173 mg/dl (74-106) H 02/20/19 07:00 Calcium 8.4 mg/dl (8.5-10) L 02/20/19 07:00 Total Bilirubin 0.6 mg/dl (0.2-1) 02/20/19 07:00 AST 30 U/L (15-37) 02/20/19 07:00 ALT 35 U/L (13-61) 02/20/19 07:00 Alkaline Phosphatase 89 U/L (45-117) 02/20/19 07:00 Total Protein 7.0 g/dl (6.4-8.2) 02/20/19 07:00 Albumin 3.7 g/dl (3.4-5.0) 02/20/19 07:00 HOSPITAL COURSE: Date of Admission:02/19/19 Date of Discharge: 02/20/19 HOSPITAL COURSE: The patient was admitted to the Med-Surg Unit after elective bariatric surgery. Now, s/p laparoscopic vertical sleeve gastrectomy. The day of surgery, the patient ambulated the hallways with assistance. The patient was monitored with remote tele/continuous pulse ox. Narcotic and non-narcotic pain management control was achieved with oral and IV pain control. Upper GI series was obtained the following morning and no leak, extravastion or gastric outlet obstruction. Started on a Bariatric Stage 1 diet and tolerated well. Violette-operative IV ABX were administered in addition to GI prophylaxis. DVT prophylaxis was achieved with SCDs and early ambulation. The discharge instructions and an oral pain management plan were reviewed with the patient. All questions answered. Above plan discussed with Dr. Bhatia and agreed. Minutes to complete discharge: 20
[2019-02-20] MEDS ORDERED: oxyCODONE HCL 5 MG TABLET PO PRN (11:35)
[2019-02-20] MEDS ORDERED: SODIUM CHLORIDE 1,000 ML IV SCH (11:45)
[2019-02-20 13:41] VITALS: BP 152/81; PULSE 78; TEMP 98.2
--- NOTE | 2019-02-23 11:32 | PATH ---
Surgical Pathology Report Patient Name: YANIRA STROUD Med. Rec. #: [id number] /Age/Gender: 1965 (Age: 53) / F Account: [id number] Location: [facility] MED-SURG Taken: 02/19/2019 Received: 02/19/2019 Reported: 02/23/2019 Physicians: Lobito Bhatia M.D. Specimen(s) Received A: LIVER BIOPSY B: GREATER CURVATURE STOMACH Clinical History Morbid obesity Final Diagnosis A. LIVER, BIOPSY: LIVER SHOWING MODERATE STEATOSIS (~20%) AND MILD STEATOHEPATITIS (GRADE 1). TRICHROME STAIN SHOWS NO APPRECIABLE INCREASE IN FIBROSIS. IRON STAIN IS NEGATIVE. B. GREATER CURVATURE, STOMACH, LAPAROSCOPIC GASTRIC SLEEVE EXCISION: PORTION OF STOMACH SHOWING MILD CHRONIC MUCOSAL INFLAMMATION. IMMUNOSTAIN IS NEGATIVE FOR H. PYLORI ORGANISMS. Electronically Signed Dixie López M.D. Gross Description A. Received in formalin, labeled "liver biopsy" is a 2.5 x 0.9 x 0.7 cm portion of yellow-brown soft tissue. A union contract representative section is submitted in one cassette. B. Received in formalin, labeled "greater curvature of stomach," is a 16.5 x 3.6 x 1.5 cm. portion of stomach with a stapled margin of resection. The serosa is newman-campbell with minimal attached fat. The mucosa is newman-pink with normal folds. No mucosal masses are identified. Piped Pocket Machine Operator sections are submitted in one cassette. AE/02/20/2019 ebram/02/20/2019
== END 2019-02-20 15:45 | disposition home or self-care (01) | DRG 621 ==
LOC: FM/S 10:23
PROVIDERS: ADMIT Surgery; ATTEND Surgery
PROC: 0FB24ZX Excision of Left Lobe Liver, Percutaneous Endoscopic Approach, Diagnostic (ICD-10-PCS; 2019-02-19)
PROC: 0DJ04ZZ Inspection of Upper Intestinal Tract, Percutaneous Endoscopic Approach (ICD-10-PCS; 2019-02-19)
PROC: 0DB64Z3 Excision of Stomach, Percutaneous Endoscopic Approach, Vertical (ICD-10-PCS; principal; 2019-02-19 12:19)
DX: E66.01 Morbid (severe) obesity due to excess calories (principal); Z68.43 Body mass index [BMI] 50.0-59.9, adult; E11.9 Type 2 diabetes mellitus without complications; R16.0 Hepatomegaly, not elsewhere classified
CPT/HCPCS: 36415; 74241-TC-FY; 80053; 82962; 85027; 86803; 87389; 88305-TC; 88313-TC; 88342-TC; 94760; J0131

== ENCOUNTER 2021-08-04 06:37 | Emergency (ER) | payer BC ==
[2021-08-04 07:08] VITALS: BP 138/70; PULSE 81; TEMP 97.8; BMI 41.3
[2021-08-04] MEDS ORDERED: METHOCARBAMOL 500 MG TABLET PO ONE (07:33)
[2021-08-04] MEDS ORDERED: KETOROLAC TROMETHAMINE 30 MG/1 ML VIAL IM ONE (07:33)
[2021-08-04] MEDS ORDERED: LIDOCAINE 5% TOPICAL PATCH TP ONE (07:33)
[2021-08-04] MEDS ORDERED: LIDOCAINE 5% TOPICAL PATCH ONE (07:37)
[2021-08-04] MEDS ORDERED: KETOROLAC TROMETHAMINE 30 MG/1 ML VIAL ONE (07:38)
[2021-08-04] MEDS ORDERED: METHOCARBAMOL 500 MG TABLET ONE (07:38)
[2021-08-04] MEDS ORDERED: LIDOCAINE PATCH REMOVAL MC SCH (22:00)
== END 2021-08-04 08:38 | disposition home or self-care (01) ==
LOC: JER 06:37
PROC: 3E0233Z Introduction of Anti-inflammatory into Muscle, Percutaneous Approach (ICD-10-PCS; principal; 2021-08-04)
DX: S29.012A Strain of muscle and tendon of back wall of thorax, initial encounter (principal); X50.0XXA Overexertion from strenuous movement or load, initial encounter
CPT/HCPCS: 71046-TC-FY; 99284-25

== ENCOUNTER 2022-02-23 13:13 | Emergency (ER) | payer BC ==
[2022-02-23 13:26] VITALS: BP 130/86; PULSE 73; RESP 20; TEMP 98; BMI 41.5
== END 2022-02-23 17:32 | disposition home or self-care (01) ==
LOC: JER 13:13
DX: R07.89 Other chest pain (principal)
CPT/HCPCS: 36415; 71045-TC-FY; 84484; 93005; 93010; 99285-25

== ENCOUNTER 2023-10-11 00:41 | Emergency (ER) | payer BC ==
[2023-10-11 00:50] VITALS: BP 122/73; PULSE 93; RESP 26; TEMP 99.1; BMI 47.2
[2023-10-11] MEDS ORDERED: ALBUTEROL SO4 2.5/IPRATROPIUM 0.5 INH SOL 3 ML VIAL.NEB. NEB ONE (01:52)
[2023-10-11] MEDS ORDERED: predniSONE 20 MG TABLET (UD) ONE (01:53)
[2023-10-11] MEDS: predniSONE 20 MG TABLET (UD) PO ONE (01:56)
[2023-10-11] MEDS: ALBUTEROL SO4 2.5/IPRATROPIUM 0.5 INH SOL 3 ML VIAL.NEB. NEB ONE (01:56)
[2023-10-11] MEDS: ALBUTEROL SO4 2.5/IPRATROPIUM 0.5 INH SOL 3 ML VIAL.NEB. NEB SCH (01:56)
== END 2023-10-11 02:50 | disposition home or self-care (01) ==
LOC: JER 00:41
PROC: 3E0F7GC Introduction of Other Therapeutic Substance into Respiratory Tract, Via Natural or Artificial Opening (ICD-10-PCS; principal; 2023-10-11)
DX: J40 Bronchitis, not specified as acute or chronic (principal); J06.9 Acute upper respiratory infection, unspecified; R05.9 Cough, unspecified; J34.89 Other specified disorders of nose and nasal sinuses; R68.83 Chills (without fever); Z20.822 Contact with and (suspected) exposure to COVID-19
CPT/HCPCS: 0241U-QW; 71046-TC-FY; 99284-25

== ENCOUNTER 2024-10-27 08:53 | Emergency (ER) | payer BC ==
[2024-10-27 09:01] VITALS: BP 144/78; PULSE 84; RESP 18; TEMP 98.1; BMI 42.5
[2024-10-27] MEDS: SODIUM CHLORIDE FOR INHALATION 3 ML VIAL.NEB IH ONE (09:18)
[2024-10-27] MEDS ORDERED: ACETAMINOPHEN 500 MG TABLET (FP) ONE (09:19)
[2024-10-27] MEDS ORDERED: IBUPROFEN 600 MG TABLET (FP) PO ONE (09:20)
[2024-10-27] MEDS ORDERED: PSEUDOEPHEDRINE HCL 60 MG TABLET ONE (09:22)
[2024-10-27] MEDS: PSEUDOEPHEDRINE HCL 60 MG TABLET PO ONE (09:24)
[2024-10-27] MEDS: ACETAMINOPHEN 500 MG TABLET (FP) PO ONE (09:24)
[2024-10-27] MEDS: IBUPROFEN 600 MG TABLET (FP) PO ONE (09:24)
== END 2024-10-27 10:13 | disposition home or self-care (01) ==
LOC: JERFT 08:53
DX: J02.9 Acute pharyngitis, unspecified (principal); R05.9 Cough, unspecified; J06.9 Acute upper respiratory infection, unspecified; M79.10 Myalgia, unspecified site; R09.81 Nasal congestion
CPT/HCPCS: 0241U-QW; 99283-25